=== PATIENT | female | born 2005 | race Caucasian/White ===

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

== ENCOUNTER → 2024-11-12 | Outpatient (CLI) | payer MEDICAID ==
--- NOTE | 2024-11-12 22:01 | MR ---
EXAMINATION TYPE: MR brain wo con DATE OF EXAM: 11/12/2024 9:49 PM COMPARISON: None. CLINICAL INDICATION: Female, 19 years old with history of G43.009; PHH, Headaches, Blurred vision TECHNIQUE: Multi planar, multi sequence imaging was performed through the brain including: T1, T2, In version recovery, Diffusion weighted imaging, and gradient echo imaging. No gadolinium was given. FINDINGS: The santos-white junctions, ventricular system, basal cisterns appear unremarkable. Midline structures show no abnormality. Diffusion-weighted imaging shows no evidence of restricted diffusion. The suscep tibility weighted images do not reveal any evidence for micro-hemorrhage. The bone marrow signal is within normal limits. Paranasal sinuses and mastoid air cells: Opacified left sphenoid sinus with mucosal. Visualized orbits: Orbital contents are intact. IMPRESSION: 1. No evidence of intracranial mass or acute/subacute infarct. 2. Left sphenoid sinus retention cyst. [facility], , 11/12/2024 9:59 PM
== END | disposition home or self-care (01) ==
LOC: RADMRIMAIN 21:30
PROVIDERS: ATTEND Family Medicine
DX: G43.009 Migraine without aura, not intractable, without status migrainosus (principal); G56.92 Unspecified mononeuropathy of left upper limb; R20.0 Anesthesia of skin; J34.1 Cyst and mucocele of nose and nasal sinus; H53.9 Unspecified visual disturbance
CPT/HCPCS: 70551